=== PATIENT | female | born 1945 | race Caucasian/White ===

== ENCOUNTER 2017-02-22 15:23 | Observation (INO) ==
[2017-02-22] MEDS ORDERED: Aspirin 81 MG TAB.CHEW PO STA (15:51)
--- NOTE | 2017-02-22 15:54 | Emergency Department Note ---
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 The patient states she took her daily morning aspirin as well as 2 nitroglycerin with her last dose roughly 1400 today. The patient states that her chest pain is continued. The patient states this feels identical to her previous NM. Patient denies any other complaints at this time. She is resting comfortably in the bed with sinus bradycardia. Pt complaint: chest pain Onset (ago): hour(s) (10) Duration: constant, gradually worsening Onset: during rest Pain Location: substernal, left chest, right chest Severity: mild, moderate Severity scale (1-10): 8 Quality: tightness, heaviness Pain Radiation: RUE, LUE, neck Improves with: nothing Worsens with: nothing Associated symptoms: Reports: nausea, dyspnea Treatments prior to arrival chest pain: aspirin, nitroglycerin - Related Data On Oral Contraceptives: No Home Medications Medication Instructions Recorded Confirmed Alendronate Sodium [Fosamax] 70 mg PO TU 09/15/15 02/22/17 Aspirin [Adult Low Dose Aspirin EC] 81 mg PO DAILY 09/15/15 02/22/17 Atorvastatin [Lipitor] 40 mg PO DAILY 09/15/15 02/22/17 Potassium Chloride [K-Tab ER] 10 meq PO DAILY 09/15/15 02/22/17 Furosemide [Lasix] 40 mg PO DAILY 02/22/17 02/22/17 Allergies Allergy/AdvReac Type Severity Reaction Status Date / Time No Known Allergies Allergy Verified 09/15/15 13:50 All systems ED: reviewed and negative except as stated. Constitutional: Denies: fever, chills, weakness, weight change Eyes: Denies: eye pain, eye discharge, vision change Cardiovascular: Reports: chest pain. Denies: palpitations, dyspnea on exertion , edema, syncope Respiratory: Reports: dyspnea. Denies: cough, wheezes, hemoptysis, stridor Gastrointestinal: Reports: nausea. Denies: abdominal pain, vomiting, diarrhea, constipation, hematemesis, melena, hematochezia Musculoskeletal: Denies: back pain, neck pain, arthralgia, myalgia Integumentary: Denies: rash, abrasion, lesions Neurological: Denies: headache, weakness, numbness, paresthesias, confusion, abnormal gait, vertigo Chest Pain PMH - Past Medical History Medical history: Reports: hypertension, kidney stones, myocardial infarction, valvular heart disease, other Surgical history: Reports: colectomy, hysterectomy (for excessive uterine bleeding.) Psychiatric history: Reports: no psych history CABLE LACER history: Reports: no CABLE LACER history - Social History Smoking Status: Never smoker Alcohol use: Reports: none Drug use: Reports: none Physical Exam - General Limitations: no limitations General appearance: alert, in no apparent distress - Head Head exam: atraumatic, normocephalic, normal inspection - Eye Eye exam: Present: normal appearance, PERRL, EOMI - Neck Neck exam: Present: normal inspection, full ROM, trachea midline - Chest Chest inspection: Present: normal inspection, symmetric chest wall rise - Respiratory Respiratory exam: Present: normal lung sounds bilaterally - Cardiovascular Cardiovascular exam: Present: regular rate, normal rhythm, normal heart sounds - Abdominal Exam Abdominal exam: Present: soft, Non-Tender. Absent: tenderness, distention, guarding, rebound, rigidity - Extremities Exam Extremities exam: Present: normal inspection, full ROM. Absent: tenderness, pedal edema Course Vital Signs Temperature 97.6 F 02/22/17 15:26 Pulse Rate 57 02/22/17 15:26 Respiratory Rate 18 02/22/17 15:26 Blood Pressure 149/86 02/22/17 15:26 O2 Sat by Pulse Oximetry 100 02/22/17 15:26 Temperature 97.6 F 02/22/17 15:26 Pulse Rate 62 02/22/17 16:25 Respiratory Rate 16 02/22/17 16:25 Blood Pressure 107/68 02/22/17 16:25 O2 Sat by Pulse Oximetry 95 02/22/17 16:25 Oxygen Delivery Oxygen Delivery Room Air Chest Pain - MDM Narrative Medical decision making narrative: Given patient's extensive history of CAD and symptoms similar to her previous NM , we will admit the patient to the hospital. The patient was accepted by Dr. Christiansen. - Medical Records Medical records reviewed: Yes I reviewed the patient's medical records. - Lab Data Lab results reviewed: Yes I reviewed the patient's lab results. Result diagrams: 02/22/17 15:53 02/22/17 15:53 Lab Results 02/22/17 02/22/17 02/22/17 Range/Units 15:53 15:53 15:53 WBC 7.8 (4.3-11.1) K/mcL RBC 4.16 (3.82-4.97) M/mcL Hgb 12.7 (11.5-15.4) g/dL Hct 37.7 (35.3-44.9) % MCV 90.6 (83.0-100.0) fL MCH 30.5 (28.0-33.3) pg MCHC 33.7 (31.6-35.5) g/dL RDW 13.2 (11.5-14.5) % Plt Count 219 (140-400) K/mcL MPV 10.8 (9.4-12.4) fL Immature Gran % 0.4 (0-4) % Seg Neutrophils % 82.4 % Lymphocytes % 12.0 % Monocytes % 5.0 % Eosinophils % 0.1 % Basophils % 0.1 % Neutrophils # 6.4 (1.6-8.9) K/mcL Lymphocytes # 0.9 (0.6-4.6) K/mcL Monocytes # 0.4 (0.0-1.3) K/mcL Eosinophils # 0.0 (0.0-0.6) K/mcL Basophils # 0.0 (0.0-0.2) K/mcL PT 10.6 (9.4-12.1) Seconds INR 1.0 APTT 29.4 (26.0-36.0) Seconds Sodium 140 (136-145) mEq/L Potassium 3.5 (3.5-4.5) mEq/L Chloride 99 (98-109) mEq/L Carbon Dioxide 29 (19-29) mEq/L BUN 14 (7-20) mg/dL Creatinine 1.32 H (0.57-1.11) mg/dL Est GFR ( Amer) 48 L (> 60) Est GFR (Non-Af Amer) 39 L (> 60) BUN/Creatinine Ratio 11 (6-26) Glucose 130 H (70-99) mg/dL Calculated Osmolality 292 (280-300) Calcium 9.6 (8.6-10.8) mg/dL Troponin I (0-0.03) ng/mL 02/22/17 Range/Units 15:53 WBC (4.3-11.1) K/mcL RBC (3.82-4.97) M/mcL Hgb (11.5-15.4) g/dL Hct (35.3-44.9) % MCV (83.0-100.0) fL MCH (28.0-33.3) pg MCHC (31.6-35.5) g/dL RDW (11.5-14.5) % Plt Count (140-400) K/mcL MPV (9.4-12.4) fL Immature Gran % (0-4) % Seg Neutrophils % % Lymphocytes % % Monocytes % % Eosinophils % % Basophils % % Neutrophils # (1.6-8.9) K/mcL Lymphocytes # (0.6-4.6) K/mcL Monocytes # (0.0-1.3) K/mcL Eosinophils # (0.0-0.6) K/mcL Basophils # (0.0-0.2) K/mcL PT (9.4-12.1) Seconds INR APTT (26.0-36.0) Seconds Sodium (136-145) mEq/L Potassium (3.5-4.5) mEq/L Chloride (98-109) mEq/L Carbon Dioxide (19-29) mEq/L BUN (7-20) mg/dL Creatinine (0.57-1.11) mg/dL Est GFR ( Amer) (> 60) Est GFR (Non-Af Amer) (> 60) BUN/Creatinine Ratio (6-26) Glucose (70-99) mg/dL Calculated Osmolality (280-300) Calcium (8.6-10.8) mg/dL Troponin I 0.01 (0-0.03) ng/mL - Radiology Data Radiology results reviewed: Yes I reviewed the patient's radiology results. - EKG Data EKG attestation: Yes I reviewed and interpreted this EKG. EKG results narrative: Heart rate 56 bpm. IL interval 196 ms. QTc 439 ms. Normal axis. Sinus bradycardia. No ST elevation or ST depression noted. Nonspecific ST changes noted on EKG from 12/24/2016. Critical Care Time Critical Care Time: Yes Total Critical Care Time: 35 Attestation: Critical care performed: Time is exclusive of separately billable procedures. Time includes: direct patient care, patient reassessment, coordination of patient care, interpretation of data (laboratory data, radiology data, and respiratory data), review of patient's medical records, medical consultation and documentation of patient care. Procedures included in critical care time: Procedures excluded from critical care time: Attestation Statement - Attestation Attestation: I, Jorge Luis Polanco DO, examined this patient [id number] and my medical decision-making was reviewed with Dr. Fabio Nicole, Resident Physician. I agree with the documented findings, disposition and treatment plan as described except to the extent set forth below. Please see my progress notes for details. 70-year-old female presents to emergency room with chest pain and pressure. Symptoms meant progressively worse over the last several days. Patient has long -standing history of cardiac disease. Nitroglycerin given prior to Arrival with some mild relief with her dose was attempted here in the emergency room with finger pain 6. Nitroglycerin glycerin started this time. Patient does have considerable risk for cardiac disease secondary to her history of 10 cardiac catheterizations with multiple stenting. Patient takes aspirin at home but is not on any blood thinners at this point. Evaluation including labs and imaging were all negative at this point. Patient is stable. Nitroglycerin drip started. Admission process compatible cardiology consultation for acute coronary syndrome rule out. No other acute issues noted above physical exam lungs are clear heart is regular abdomen soft nontender nondistended. No signs of pitting edema or cardiac distress or respiratory distress this time. Patient is stable and good medical condition at time of admission for acute coronary syndrome rule out. See detailed documentation of the consultation intervention and medical decision making process and resident physician's note
[2017-02-22 16:04] LABS: Basophils % 0.1 %; Eosinophils % 0.1 %; Hematocrit 37.7 % (35.3-44.9); Hemoglobin 12.7 g/dL (11.5-15.4); Immature Granulocytes % 0.4 % (0-4); Lymphocytes # 0.9 K/mcL (0.6-4.6); Mean Corpuscular HGB Conc 33.7 g/dL (31.6-35.5); Mean Corpuscular Hemoglobin 30.5 pg (28.0-33.3); Mean Corpuscular Volume 90.6 fL (83.0-100.0); Mean Platelet Volume 10.8 fL (9.4-12.4); Monocytes # 0.4 K/mcL (0.0-1.3); Neutrophils # 6.4 K/mcL (1.6-8.9); Platelet Count 219 K/mcL (140-400); Red Blood Count 4.16 M/mcL (3.82-4.97); Red Cell Distribution Width 13.2 % (11.5-14.5); Segmented Neutrophils % 82.4 %
[2017-02-22] MEDS: Nitroglycerin 0.4 MG TAB.SUBL SL PRN ×3 (16:04→16:16)
[2017-02-22 16:09] LABS: Prothrombin Time 10.6 Seconds (9.4-12.1)
[2017-02-22 16:12] LABS: Activated Partial Thrombo Time 29.4 Seconds (26.0-36.0)
[2017-02-22 16:16] LABS: Calcium 9.6 mg/dL (8.6-10.8); Potassium 3.5 mEq/L (3.5-4.5)
[2017-02-22] MEDS ORDERED: Ondansetron 4 MG/2 ML VIAL IVP ONE (16:32)
[2017-02-22] MEDS ORDERED: *HR* OxyCODONE Immed Rel 5 MG TABLET PO PRN (18:03)
[2017-02-22] MEDS ORDERED: Acetaminophen 325 MG TABLET PO PRN (18:03)
[2017-02-22] MEDS ORDERED: *HR* Morphine 2 MG/ML SYRINGE IVP PRN (18:03)
[2017-02-22] MEDS ORDERED: Naloxone 0.4 MG/ML INJ IVP PRN (18:03)
[2017-02-22] MEDS ORDERED: Ondansetron 4 MG/2 ML VIAL IVP PRN (18:03)
--- NOTE | 2017-02-22 18:16 | Internal Med History&Physical ---
Date of Encounter: 02/22/17 Time of Encounter: 18:05 Assessment and Plan (1) Chest pain Current visit: Yes Status: Acute Check a stress test, limited echocardiogram Monitor troponins, telemetry, check lipid panel Nitroglycerin as needed, morphine as needed Omeprazole for GI prophylaxis and Lovenox for DVT prophylaxis. The patient will be admitted for observation. DNR CC arrest DNI. Time spent on this admission 40 minutes. Qualifiers: Chest pain type: unspecified Qualified Code(s): R07.9 - Chest pain, unspecified (2) CAD (coronary artery disease) Current visit: No Status: Chronic Continue aspirin Qualifiers: Coronary Disease-Associated Artery/Lesion type: [place] artery [place] vs. transplanted heart: [place] heart Associated angina: angina presence unspecified Qualified Code(s): I25.10 - Atherosclerotic heart disease of [place] coronary artery without angina pectoris (3) Hypertension Current visit: No Status: Acute Stable, consider hydralazine IV as needed Qualifiers: Hypertension type: essential hypertension Qualified Code(s): I10 - Essential (primary) hypertension (4) Hyperlipidemia Current visit: No Status: Acute Qualifiers: Hyperlipidemia type: unspecified Qualified Code(s): E78.5 - Hyperlipidemia , unspecified (5) CKD (chronic kidney disease) Current visit: Yes Status: Acute Qualifiers: Chronic kidney disease stage: stage 3 (moderate) Qualified Code(s): N18.3 - Chronic kidney disease, stage 3 (moderate) Internal Medicine - H&P: HPI Chief complaint: Chest pain Admitted From: Emergency Dept History of present illness: Ms. Weaver is a 71 year old female with a past medical history of chronic kidney disease stage III, CAD status post stents, hyperlipidemia, hypertension who came to the emergency room complaining of chest pressure that started early this morning. The patient took 2 nitroglycerin at home and 3 more doses here in the ER which helped with a pressure. She has been also complaining of severe nausea. Pressure was 9 out of 10 in intensity radiating to the right arm , she mentioned that it was very similar to her prior events. Troponin 0.01, EKG shows sinus bradycardia and ST abnormalities unchanged from prior EKGs. Chest x-ray is unremarkable, creatinine is 1.32 at baseline. Blood pressure is 149/80, heart rate was 52. Denies any dizziness, feels slightly weak. Denies any other complaint and is pain-free at the moment Past Med Surg Social Fam HX - Past Medical History Medical history: coronary artery disease (Status post stents), hyperlipidemia, hypertension, kidney stones, myocardial infarction, peripheral artery disease, renal disease (Chronic kidney disease stage III), valvular heart disease ( Moderate aortic stenosis), other (Osteoporosis, right carotid stenosis) Psychiatric history: no psych history - Past Surgical History Surgical History: appendectomy, carotid endarterectomy (Right), cholecystectomy , hysterectomy (for excessive uterine bleeding.) - Social History Smoking Status: Never smoker Smokeless Tobacco Status: No Alcohol use: none Drug use: none - Family History Mother Hx Family Cardiac Disorders: Yes (CHF) Father Hx Family Cardiac Disorders: Yes (angina) - Additional Family History Additional family history: Mother with CHF and father with CAD Internal Medicine - H&P: Meds Alendronate Sodium [Fosamax] 70 mg PO TU 09/15/15 [History] Aspirin [Adult Low Dose Aspirin EC] 81 mg PO DAILY 09/15/15 [History] Atorvastatin [Lipitor] 40 mg PO DAILY 09/15/15 [History] Potassium Chloride [K-Tab ER] 10 meq PO DAILY 09/15/15 [History] Furosemide [Lasix] 40 mg PO DAILY 02/22/17 [History] 3 Allergy/AdvReac Type Severity Reaction Status Date / Time No Known Allergies Allergy Verified 09/15/15 13:50 All Systems PM: A 10-system review of systems was performed and is negative for pertinent findings except as documented above in the HPI. Review of systems: Denies any shortness of breath, no dysuria. Other systems out of the 10 reviewed are negative - Constitutional Vitals: Temp Pulse Resp BP Pulse Ox 97.6 F 62 16 124/71 95 02/22/17 15:26 02/22/17 16:25 02/22/17 18:00 02/22/17 18:00 02/22/17 16:25 General appearance: Present: A&O X 3 - Head Head exam: Present: atraumatic, normocephalic - Eye Eye exam: Present: PERRL, conjuntiva pink, sclera anicteric Pupils: Present: PERRL - Neck Neck exam general surgery: Present: supple, trachea midline. Absent: lymphadenopathy - Respiratory Respiratory exam: Present: decreased breath sounds, CTAB. Absent: accessory muscle use, rales, rhonchi, wheezes Additional comments: Kyphosis - Cardiovascular Cardiovascular exam: Present: RRR, +S1, +S2, systolic murmur (Loud 2/6 systolic murmur radiating to the aortic area). Absent: diastolic murmur, gallop, rubs - GI/Abdominal GI/Abdominal exam: Present: normal bowel sounds, soft, no peritoneal signs. Absent: distended, tenderness - Extremities Exam Extremities exam: Present: warm, radial pulses palpable and symmetrical. Absent : calf tenderness, cyanotic, pedal edema - Neurological Exam Neurological exam: Present: CN II-XII intact, oriented X3, no focal deficits. Absent: pronater drift, facial droop, speech deficit - Skin Skin exam: Present: dry, intact Internal Med - H&P Results - Labs CBC & Chem 7: 02/22/17 15:53 02/22/17 15:53
[2017-02-23] MEDS ORDERED: *HR* Enoxaparin 30 MG/0.3 ML SYRINGE SQ SCH (06:00)
[2017-02-23] MEDS ORDERED: Regadenoson 0.4 MG/5 ML SYRINGE IVP ONE (06:10)
[2017-02-23] MEDS ORDERED: Furosemide 40 MG TABLET PO SCH (09:00)
[2017-02-23] MEDS ORDERED: Aspirin Enteric Coated 81 MG Tablet PO SCH (09:00)
[2017-02-23 10:27] LABS: Calcium 9.4 mg/dL (8.6-10.8); Chol/HDL Ratio 3.8 (0-4.9); Potassium 3.3 mEq/L (3.5-4.5)
--- NOTE | 2017-02-23 10:39 | Nuclear Medicine Stress Report ---
Regadenoson Nuclear Stress Name: Joslyn Weaver Date of Study: 02/23/2017 Date: 1945 Ht: 64.0 in Medical Record#: [id number] Age: 71 Wt: 134.0 lb Gender: Female Order #: [id number] Location: [facility] IP Room: [employer] [facility] [employer] [facility] Supervising Provider: Troy Nino CNP Reading Physician: Agustín Euceda MD, [facility] Ordering Physician: Sharda Morgan CNP Primary Care Physician: Roberta Last CNP Stress Technologist: Valeria Burch RRT Loom Changer: Jose Francisco Briceño Indications: Chest Pain Impression: Gated LVEF > 70%. Perfusion imaging was negative for ischemia or infarct. History: Hypertension Hypercholesteremia Prior PCI Stress Test Summary: Stress Test Type: Pharmacologic Regadenoson 0.4mg/5ml given IV Baseline Information: Initial Heart Rate: 54 Blood Pressure: 130/84 Stress Information: Test Terminated Due to (primary): As per protocol Maximum Blood Pressure: 136/82 Maximum Heart Rate: 91 Percent Maximum Heart Rate Achieved: 67 Double Product: [id number] Symptoms: No chest symptoms, Nausea Nuclear Summary: SPECT myocardial perfusion imaging using [id number] Sestamibi given intravenously was performed at rest and following cardiac stress testing. The resting images were obtained following initial dose of 11.8 mCi. Following stress an additional dose of 33.6 mCi was given at peak exercise or 30 seconds post regadenoson infusion. Findings: Stress Note * Resting ECG demonstrated sinus bradycardia, non-specific ST-T wave abnormality. * No baseline arrhythmias were noted. * Patient had no chest pain during stress. * Occasional PACs noted during stress. * No significant ECG changes with regadenoson. Hemodynamic responses * Normal hemodynamic responses to pharmacologic stress. Study Quality * Study quality is good. Gated EF > 70% * Gated LVEF > 70%. Left Ventricle * The left ventricle is not dilated. * Normal Segmental Perfusion in rest. * Normal segmental perfusion in stress. TID * No evidence of transient ischemic dilatation. Updated by Agustín Euceda MD, [facility] on 02/23/2017 10:33:33 AM electronically signed on 02/23/2017 10:33:59 AM with status of Final
[2017-02-23 14:59] VITALS: BP 111/63
--- NOTE | 2017-02-23 15:00 | Discharge Summary ---
Date of Encounter: 02/23/17 Time of Encounter: 14:00 - Discharge Diagnosis (1) Chest pain Priority: Primary Status: Resolved Comments: Patient denied chest pain while admitted. Chest x-ray negative. Troponins negative. Stress test negative. Echocardiogram unremarkable. ACS ruled out. Follow-up outpatient. (2) Vomiting Priority: Primary Status: Resolved Comments: Tolerated a regular diet while admitted. (3) CAD (coronary artery disease) Priority: Secondary Status: Chronic Qualifiers: Coronary Disease-Associated Artery/Lesion type: [place] artery [place] vs. transplanted heart: [place] heart Associated angina: angina presence unspecified Qualified Code(s): I25.10 - Atherosclerotic heart disease of [place] coronary artery without angina pectoris (4) Hypertension Priority: Secondary Status: Chronic Comments: Controlled, follow-up outpatient Qualifiers: Hypertension type: essential hypertension Qualified Code(s): I10 - Essential (primary) hypertension (5) Hyperlipidemia Priority: Secondary Status: Chronic Comments: Lipid panel unremarkable other than LDL 111. Continue statin. Low-cholesterol diet. Qualifiers: Hyperlipidemia type: unspecified Qualified Code(s): E78.5 - Hyperlipidemia , unspecified (6) CKD (chronic kidney disease) Priority: Secondary Status: Chronic Comments: Remained stable and slightly improved but still consistent with her baseline while admitted Qualifiers: Chronic kidney disease stage: stage 3 (moderate) Qualified Code(s): N18.3 - Chronic kidney disease, stage 3 (moderate) (7) DVT prophylaxis Priority: Primary Status: Acute Comments: Subcutaneous Lovenox while admitted - Discharge Medications Prescriptions: Ondansetron HCl 4 mg PO Q6H PRN #8 tablet PRN Reason: Nausea And Vomiting Home Medications: Alendronate Sodium [Fosamax] 70 mg PO TU 09/15/15 [History] Aspirin [Adult Low Dose Aspirin EC] 81 mg PO DAILY 09/15/15 [History] Atorvastatin [Lipitor] 40 mg PO DAILY 09/15/15 [History] Potassium Chloride [K-Tab ER] 10 meq PO DAILY 09/15/15 [History] Furosemide [Lasix] 40 mg PO DAILY 02/22/17 [History] Ondansetron HCl 4 mg PO Q6H PRN #8 tablet 02/23/17 [Rx] Allergies/Adverse Reactions: 3 Allergy/AdvReac Type Severity Reaction Status Date / Time No Known Allergies Allergy Verified 03/31/16 13:50 Procedures/tests Complete & Pending: Procedures Performed prior 72 hours Category Date Time Status NM [place] perf SPECT multi [NM] Routine Exams 02/22/17 18:03 Taken EV limited echocardiogram Routine Y 02/22/17 18:02 Completed SP pharm nuclear stress Routine Y 02/22/17 18:02 Completed Date of admission: 02/22/17 17:42 Primary care physician: Roberta Last CNP Consults: 02/23/17 03:50 PT [Consult to Physical Therapy] [CONS] Routine Comment: Evaluate, develop and implement POC Reason for Consult: Generlized weakness, multiple falls at home Discharging clinician: Sharda Morgan Anticipated date of discharge: 02/23/17 - Patient Status Disposition: Home, Self-Care Condition: Good Functional capacity at discharge: independent ambulation Overall status at discharge: patient is back to baseline - Discharge Instructions Follow Up With: Roberta Last CNP [Primary Care Provider] - Additional Instructions: Follow-up with primary care provider within one to 2 weeks - Diet and Activity Activity: increase activity as tolerated Diet: low fat, low cholesterol, low salt diet Hospital course: Ms. Weaver is a 71 year old female with past medical history of CAD status post stents, hyperlipidemia, hypertension, chronic kidney disease stage III, moderate aortic stenosis. Patient presented to the emergency department chief complaint of chest pressure that started on the morning of presentation. She took 2 nitroglycerin at home and 3 more doses in the ER which helped with her chest pressure. Patient also complaining of severe nausea. Patient stating the pressure radiated to her right arm and stated that it felt similar to her prior events. Workup in the emergency department unremarkable. No acute ECG changes. Chest x-ray unremarkable. Patient was admitted to the hospitalist service for further evaluation and management. Limited echocardiogram revealed preserved ejection fraction of 60-65%. Troponins were negative. Patient had a nuclear stress test that was negative for ischemia or infarct. ACS ruled out. Patient denied chest pain or shortness of breath while admitted and was able to tolerate a regular diet prior to discharge. She was also ambulatory without limitations, lightheadedness, or dizziness. She was discharged home in stable condition with close outpatient follow-up recommended. ITS Impressions Chest X-Ray 02/22/17 15:49 IMPRESSION: No acute cardiopulmonary disease. D/ / Artem Gagnon MD / Artem Gagnon MD Interpreting Provider: Artem Gagnon MD Limited Echocardiogram Date of Study: 02/22/2017 Impressions: Normal LV systolic function, LVEF 60-65%. Normal right ventricular size and function. Valvular function was not assessed on this limited study. Regadenoson Nuclear Stress Date of Study: 02/23/2017 Impression: Gated LVEF > 70%. Perfusion imaging was negative for ischemia or infarct. - Time Spent with Patient Total time spent providing and/or coordinating discharge services: - Constitutional Vitals: Temp Pulse Resp BP Pulse Ox 97.6 F 53 14 120/71 98 02/23/17 10:57 02/23/17 10:57 02/23/17 10:57 02/23/17 10:57 02/23/17 10:57 General appearance: Present: A&O X 3, pleasant, no acute distress, answers questions appropriately - Head Head exam: Present: atraumatic, normocephalic - Eye Eye exam: Present: PERRL, conjuntiva pink, sclera anicteric Pupils: Present: PERRL - Neck Neck exam general surgery: Present: supple, trachea midline. Absent: lymphadenopathy - Respiratory Respiratory exam: Present: CTAB. Absent: accessory muscle use, rales, respiratory distress, rhonchi, wheezes - Cardiovascular Cardiovascular exam: Present: RRR, +S1, +S2, systolic murmur. Absent: diastolic murmur, gallop, rubs - GI/Abdominal GI/Abdominal exam: Present: normal bowel sounds, soft, no peritoneal signs. Absent: distended, tenderness - Extremities Exam Extremities exam: Present: warm, radial pulses palpable and symmetrical. Absent : calf tenderness, cyanotic, pedal edema - Neurological Exam Neurological exam: Present: alert, CN II-XII intact, normal gait, oriented X3, no focal deficits, strengths equal and symetr throughout. Absent: pronater drift, facial droop, speech deficit - Skin Skin exam: Present: dry, intact, normal color, warm
[2017-02-24] MEDS ORDERED: *HR* Enoxaparin 40 MG/0.4 ML SYRINGE SQ SCH (06:00)
--- NOTE | 2017-02-25 15:53 | Electrocardiograph Report ---
[address] [place], [place] [address] Test Date: 2017-02-22 Pat Name: Joslyn Weaver Department: 102 Room: 3B14 Gender: F [employer]en [employer]: [facility] : 1945 Requested By: Sharda Morgan Order Number: [id number] Reading MD: Harjinder lCinton MD Measurements Intervals [place] Rate: 56 P: 39 NC: 196 QRS: 11 QRSD: 98 T: 28 QT: 447 QTc: 439 Interpretive Statements SINUS BRADYCARDIA Electronically Signed On 02-25-2017 15:52:19 EDT by Harjinder Clinton MD
== END 2017-02-23 15:47 | disposition home or self-care (01) ==
LOC: EMEROO 15:23 → 3BNU 15:23
PROVIDERS: ADMIT Internal Medicine; ATTEND Nurse Practitioner Family

== ENCOUNTER 2019-05-05 15:52 | Observation (INO) ==
[2019-05-05] MEDS ORDERED: Nitroglycerin 0.4 MG TAB.SUBL SL PRN (16:03)
[2019-05-05 17:40] LABS: Basophils % 0.2 %; Eosinophils % 0.4 %; Hematocrit 35.3 % (35.3-44.9); Hemoglobin 12.3 g/dL (11.5-15.4); Immature Granulocytes % 0.2 % (0-4); Lymphocytes # 1.1 K/mcL (0.6-4.6); Lymphocytes % 13.4 %; Mean Corpuscular HGB Conc 34.8 g/dL (31.6-35.5); Mean Corpuscular Hemoglobin 31.4 pg (28.0-33.3); Mean Corpuscular Volume 90.1 fL (83.0-100.0); Mean Platelet Volume 10.2 fL (9.4-12.4); Monocytes # 0.7 K/mcL (0.0-1.3); Monocytes % 8.7 %; Neutrophils # 6.3 K/mcL (1.6-8.9); Platelet Count 363 K/mcL (140-400); Red Blood Count 3.92 M/mcL (3.82-4.97); Red Cell Distribution Width 14.1 % (11.5-14.5); Segmented Neutrophils % 77.1 %; White Blood Count 8.2 K/mcL (4.3-11.1)
[2019-05-05] MEDS ORDERED: Nitroglycerin 1 INCH/GM PACKET TP ONE (17:43)
[2019-05-05 17:46] LABS: Prothrombin Time 11.2 Seconds (9.4-12.1)
[2019-05-05 17:49] LABS: Activated Partial Thrombo Time 32.7 Seconds (26.0-36.0)
[2019-05-05 18:03] LABS: BUN/Creatinine Ratio 12 (6-26); Blood Urea Nitrogen 16 mg/dL (8-23); Calcium 8.3 mg/dL (8.6-10.3); Carbon Dioxide 29 mEq/L (23-29); Chloride 96 mEq/L (98-107); Glucose 106 mg/dL (70-105); Osmolality,Calculated 286 (280-300); Potassium 3.1 mEq/L (3.5-5.1); Sodium 137 mEq/L (136-145); Troponin I < 0.03 ng/mL (< 0.04); eGFR For African Americans 45 (> 60); eGFR For Non-African Americans 37 (> 60)
[2019-05-05] MEDS ORDERED: Naloxone 0.4 MG/ML INJ IVP PRN (22:26)
[2019-05-05] MEDS ORDERED: Potassium Chloride Elixir 20 MEQ/15 ML UDC PO ONE (22:58)
[2019-05-06] MEDS ORDERED: Acetaminophen 325 MG TABLET PO ONE (00:13)
[2019-05-06 05:26] LABS: Basophils % 0.2 %; Eosinophils # 0.1 K/mcL (0.0-0.6); Eosinophils % 1.1 %; Immature Granulocytes % 0.3 % (0-4); Lymphocytes # 1.5 K/mcL (0.6-4.6); Lymphocytes % 23.2 %; Mean Corpuscular HGB Conc 33.3 g/dL (31.6-35.5); Mean Corpuscular Hemoglobin 30.5 pg (28.0-33.3); Mean Corpuscular Volume 91.4 fL (83.0-100.0); Mean Platelet Volume 10.1 fL (9.4-12.4); Monocytes # 0.6 K/mcL (0.0-1.3); Monocytes % 8.9 %; Neutrophils # 4.4 K/mcL (1.6-8.9); Platelet Count 331 K/mcL (140-400); Red Blood Count 3.61 M/mcL (3.82-4.97); Red Cell Distribution Width 14.2 % (11.5-14.5); Segmented Neutrophils % 66.3 %; White Blood Count 6.6 K/mcL (4.3-11.1)
[2019-05-06 05:49] LABS: Potassium 3.6 mEq/L (3.5-5.1)
[2019-05-06 05:50] LABS: Albumin 3.4 g/dL (3.5-5.7); Albumin/Globulin Ratio 1.1 (1.1-2.2); Bilirubin,Total 0.4 mg/dL (0.3-1.0); Chol/HDL Ratio 3.4 (0-4.9); Total Protein 6.4 g/dL (6.4-8.9)
[2019-05-06] MEDS: Metoprolol XL (24 HR) Succ 25 MG TAB.ER.24H PO SCH (09:47)
[2019-05-06] MEDS: Aspirin Enteric Coated 81 MG Tablet PO SCH (09:47)
[2019-05-06] MEDS: Furosemide 40 MG TABLET PO SCH (09:47)
[2019-05-06] MEDS ORDERED: Perflutren Lipid Microsphere 1.3 ML in 0.9 % Sodium Chloride 8.7 ML IVP ONE (15:59)
[2019-05-07] MEDS ORDERED: *HR* Heparin 5,000 UNIT/ML VIAL SQ SCH (06:00)
[2019-05-07 07:52] VITALS: BP 147/83
[2019-05-07] MEDS: Metoprolol XL (24 HR) Succ 25 MG TAB.ER.24H PO SCH (09:36)
[2019-05-07] MEDS: Furosemide 40 MG TABLET PO SCH (09:36)
[2019-05-07] MEDS: Aspirin Enteric Coated 81 MG Tablet PO SCH (09:36)
== END 2019-05-07 12:33 | disposition home or self-care (01) ==
LOC: EMEROOARM 15:52 → 3BNU 15:52 → SUATTDRO 19:56 → 3BNU 20:32
PROVIDERS: ADMIT Internal Medicine; ATTEND Internal Medicine

== ENCOUNTER 2021-10-31 06:24 | Inpatient (IN) ==
[2021-10-31] MEDS ORDERED: D5% in Water 100 ML ONE (06:34)
[2021-10-31] MEDS ORDERED: 0.9 % Sodium Chloride 250 ML ONE (06:34)
[2021-10-31] MEDS ORDERED: Vancomycin 1,000 MG VIAL ONE (06:34)
[2021-10-31] MEDS ORDERED: 0.9 % Sodium Chloride 1,000 ML ONE ×2 (06:34→08:13)
[2021-10-31] MEDS ORDERED: NiCARdipine 2.5 MG/10 ML Syringe IVPB ONE (06:35)
[2021-10-31] MEDS ORDERED: *HR* Heparin 10,000 UNIT/10 ML VIAL ONE (07:15)
[2021-10-31] MEDS ORDERED: Protamine Sulfate 50 MG/5 ML VIAL IVP ONE (07:15)
[2021-10-31] MEDS ORDERED: Heparin 1,000 UNITS/500 mL 2,000 ML ONE (07:16)
[2021-10-31] MEDS ORDERED: ISOVUE-370 200 ML INFUS..BTL ONE (07:16)
[2021-10-31] MEDS ORDERED: 0.9 % Sodium Chloride 2,000 ML ONE (07:16)
[2021-10-31] MEDS ORDERED: *HR* FentaNYL (PF) 100 MCG/2 ML VIAL ONE (07:21)
[2021-10-31] MEDS ORDERED: del Nido Cardioplegia Solution PF ONE ×2 (07:30)
[2021-10-31] MEDS ORDERED: Norepinephrine 4 MG in 0.9 % Sodium Chloride 250 ML IVC PRN (07:30)
[2021-10-31] MEDS ORDERED: Buckersberg's Blood Cardioplegia PF ONE (07:30)
[2021-10-31] MEDS ORDERED: Heparin 15,000 UNIT in 0.9 % Sodium Chloride 500 ML IV ONE (07:30)
[2021-10-31] MEDS ORDERED: Ondansetron 4 MG/2 ML VIAL IVP PRN ×2 (09:42→13:21)
[2021-10-31] MEDS ORDERED: *HR* FentaNYL (PF) 100 MCG/2 ML VIAL IVP PRN (09:42)
[2021-10-31] MEDS: niCARdipine 20 MG/200 ML MLS IVC SCH ×4 (11:19→23:34)
[2021-10-31] MEDS ORDERED: *HR* OxyCODONE/APAP 5/325 TABLET PO PRN (13:09)
[2021-11-01] MEDS: niCARdipine 20 MG/200 ML MLS IVC SCH ×2 (00:13→05:54)
[2021-11-01 05:35] LABS: Basophils % 0.2 %; Eosinophils % 0.5 %; Hematocrit 33.8 % (35.3-44.9); Hemoglobin 10.7 g/dL (11.5-15.4); Immature Granulocytes % 0.3 % (0-4); Lymphocytes # 0.9 K/mcL (0.6-4.6); Lymphocytes % 9.9 %; Mean Corpuscular HGB Conc 31.7 g/dL (31.6-35.5); Mean Corpuscular Hemoglobin 31.5 pg (28.0-33.3); Mean Corpuscular Volume 99.4 fL (83.0-100.0); Mean Platelet Volume 11.1 fL (9.4-12.4); Monocytes # 0.9 K/mcL (0.0-1.3); Monocytes % 10.3 %; Neutrophils # 6.8 K/mcL (1.6-8.9); Platelet Count 112 K/mcL (140-400); Red Cell Distribution Width 13.3 % (11.5-14.5); Segmented Neutrophils % 78.8 %; White Blood Count 8.6 K/mcL (4.3-11.1)
[2021-11-01 05:40] LABS: Calcium 8.1 mg/dL (8.6-10.3); Potassium 4.4 mEq/L (3.5-5.1)
[2021-11-01 05:47] LABS: Prothrombin Time 11.3 Seconds (9.4-12.1)
[2021-11-01] MEDS ORDERED: Perflutren Lipid Microsphere 1.3 ML in 0.9 % Sodium Chloride 8.7 ML IVP PRN (06:00)
[2021-11-01 08:46] VITALS: TEMP 98.4
[2021-11-01] MEDS ORDERED: Metoprolol XL (24 HR) Succ 25 MG TAB.ER.24H PO SCH (09:00)
[2021-11-01] MEDS ORDERED: Aspirin Enteric Coated 81 MG Tablet PO SCH (09:00)
[2021-11-01] MEDS ORDERED: Spironolactone 25 MG TABLET PO SCH (09:00)
[2021-11-01 10:49] VITALS: BP 124/61
[2021-11-01 11:21] VITALS: PULSE 57; O2SAT 98
== END 2021-11-01 11:50 | disposition home or self-care (01) | DRG 267 ==
LOC: INVDIALAB 06:24 → ICNU 10:48
PROVIDERS: ADMIT Thoracic Surgery (Cardiothoracic Vascular Surgery); ATTEND Thoracic Surgery (Cardiothoracic Vascular Surgery)